=== PATIENT | female | born 2000 | race Caucasian/White ===

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

== ENCOUNTER 2019-10-03 17:43 | Emergency (ER) | payer OTHER ==
[~2019-10-03] VITALS: Ht 175.3 cm; Wt 132.4 kg
--- OUTSIDE RECORDS SUMMARY | ~2019-10-03 | XMS | Clinical Summary ---
Demographics + + + | Address | [address] | | | [place] [address] | + + + | Home Phone | | + + + | Preferred Language | Unknown | + + + | Marital Status | Single | + + + | Sabianism Affiliation | Unknown | + + + | Race | White | + + + | Ethnic Group | Not or | + + + Author + + + | Author | [facility] | + + + | Organization | [facility] | + + + | Address | Unknown | + + + | Phone | Unavailable | + + + Support + + + + + | Name | Relationship | Address | Phone | + + + + + | Carmen Ledbetter | ECON | [address] | | | | | [place] | | | | | [address] | | + + + + + Care Team Providers + +------+ + | Care Binding Dyer Name | Role | Phone | + +------+ + | Caitlyn Cunningham MD | PCP | | + +------+ + Source Comments DEBRA is fully live on both [facility] Amb[facility] and [facility] InPatient.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 | + + Last Filed Vital Signs Not on file Plan of Treatment + + + + + | Health Maintenance | Due Date | Last Done | Comments | + + + + + | Influenza (Flu) | | | | | vaccination (#1) | 9 | | | + + + + + | Pneumococcal | Aged Out | | No longer eligible | | vaccination | | | based on patient's | | | | | age to complete this | | | | | topic | + + + + + Results Not on filefrom Last 3 Months"
--- OUTSIDE RECORDS SUMMARY | ~2019-10-03 | XMS | Clinical Summary ---
Demographics + + + | Address | [address] | | | [place] [address] | + + + | Home Phone | | + + + | Preferred Language | Unknown | + + + | Marital Status | Unknown | + + + | Pentecostal Affiliation | Unknown | + + + | Race | Unknown | + + + | Ethnic Group | Unknown | + + + Author + + + | Author | [facility] | | | and [place] | + + + | Organization | [facility] | | | and [place] | + + + | Address | Unknown | + + + | Phone | Unavailable | + + + Support + + +---------+ + | Name | Relationship | Address | Phone | + + +---------+ + | Jayce Esquivel | ECON | Unknown | | + + +---------+ + Care Team Providers + +------+ + | Care Rn Imaging Name | Role | Phone | + +------+ + | No, Physician | PCP | Unavailable | + +------+ + Allergies No Known Allergies Medications Not on file Active Problems Not on file Social History + +-------+ +--------+------+ | Tobacco Use | Types | Packs/Day | Years | Date | | | | | Used | | + +-------+ +--------+------+ | Never Smoker | | | | | + +-------+ +--------+------+ + +---+---+---+ | Smokeless Tobacco: | | | | | Never Used | | | | + +---+---+---+ + + +---------+ + | Alcohol Use | Drinks/Week | oz/Week | Comments | + + +---------+ + | Not Currently | | | | + + +---------+ + + + + | Sex Assigned at | Date Recorded | | | | + + + | Not on file | | + + + Last Filed Vital Signs + + + + + | Vital Sign | Reading | Time Taken | Comments | + + + + + | Blood Pressure | 158/79 | 02/13/2019 3:56 PM | | | | | PST | | + + + + + | Pulse | 93 | 02/13/2019 3:56 PM | | | | | PST | | + + + + + | Temperature | 36.5 C (97.7 F) | 02/13/2019 3:56 PM | | | | | PST | | + + + + + | Respiratory Rate | 22 | 02/13/2019 3:56 PM | | | | | PST | | + + + + + | Oxygen Saturation | 100% | 02/13/2019 3:56 PM | | | | | PST | | + + + + + | Inhaled Oxygen | - | - | | | Concentration | | | | + + + + + | Weight | 128.8 kg (284 lb) | 02/13/2019 3:56 PM | | | | | PST | | + + + + + | Height | 175.3 cm (5' 9") | 02/13/2019 3:56 PM | | | | | PST | | + + + + + | Body Mass Index | 41.94 | 02/13/2019 3:56 PM | | | | | PST | | + + + + + Plan of Treatment + + +-------+ + | Health Maintenance | Due Date | Last | Comments | | | | Done | | + + +-------+ + | Well Child Check | | | | | | 3 | | | + + +-------+ + | Vaccine: HPV (1 - | | | | | 2-dose series) | 1 | | | + + +-------+ + | Vaccine: | | | | | Dtap/Tdap/Td (1 - | 9 | | | | Tdap) | | | | + + +-------+ + | Vaccine: Influenza | | | | | (Season Ended) | 0 | | | + + +-------+ + Results Not on filefrom Last 3 Months Insurance + +--------+ +--------+ +---------+--------+ | Payer | Benefi | Subscriber | Effect | Phone | Address | Type | | | t Plan | ID | daniele | | | | | | / | | Dates | | | | | | Group | | | | | | + +--------+ +--------+ +---------+--------+ | [employer] | [employer] | [id number] | 02/13/ | [phone] | | Medica | | MEDICAID HMO | HEALTH | | 2019-P | 1 | | id | | | MDCD | | resent | | | | | | [place] | | | | | | + +--------+ +--------+ +---------+--------+ + +--------+ +--------+ + + | Guarantor Name | Accoun | Relation to | Date | Phone | Billing Address | | | t Type | Patient | of | | | | | | | | | | + +--------+ +--------+ + + | Ivett Trevino | Person | Self | [birth year] | [address] | | | al/Fam | | 2001 | [phone] | [place], [place] | | | ezequiel | | | 0 (Home) | [address] | | | | | | [phone] | | | | | | | 1 (Work) | | + +--------+ +--------+ + + Advance Directives + + + + + | Type | Date Recorded | Patient | Explanation | | | | Report Checker | | + + + + + | Power of | | | | | Technician Automatic | | | | + + + + + | Advance | 02/13/2019 | | | | Directive | 4:38 PM | | | + + + + +
--- OUTSIDE RECORDS SUMMARY | ~2019-10-03 | XMS | Encounter Summary ---
Demographics + + + | Address | [address] | | | [place] [address] | + + + | Home Phone | | + + + | Preferred Language | Unknown | + + + | Marital Status | Unknown | + + + | Nondenominational Affiliation | Unknown | + + + | Race | Unknown | + + + | Ethnic Group | Unknown | + + + Author + + + | Author | [facility] | | | and [place] | + + + | Organization | [facility] | | [...] Team Providers + +------+ + | Care Medical Clinic Manager Name | Role | Phone | + +------+ + | No, Physician | PCP | Unavailable | + +------+ + Reason for Visit + +--------+ + | Reason | Onset | Comments | | | Date | | + +--------+ + | ED Follow-up | 02/16/ | | | | 2019 | | + +--------+ + Encounter Details +--------+ + + + + | Date | Type | Department | Care Team | Description | +--------+ + + + + | 02/16/ | Telephone | [place] [facility] | [facility], | ED Follow-up | | 2019 | | [facility] | Bruna Adams RN | | | | | [facility] [address] | | | | | | [facility] [place], | | | | | | [place] [address] | | | | | | [phone] | | | +--------+ + + + + Social History + +-------+ [...] on file | | + + + documented as of this encounter Miscellaneous Notes Telephone Encounter - Bruna Alfredo RN - 02/16/2019 9:31 AM PSTMessage states p atient in not accepting calls at this time. Letter to patient with PCP options in our area. Bruna Alfredo RN documented in this encounter Plan of Treatment Not on filedocumented as of this encounter Visit Diagnoses Not on filedocumented in this encounter"
--- OUTSIDE RECORDS SUMMARY | ~2019-10-03 | XMS | Encounter Summary ---
Demographics + + + | Address | [address] | | | [place] [address] | + + + | Home Phone | | + + + | Preferred Language | Unknown | + + + | Marital Status | Single | + + + | Restoration Affiliation | Unknown | + + + | Race | White | + + + | Ethnic Group | Not or | + + + Author + + + | Author | [facility] | + + + | Organization | [facility] | + + + | Address | Unknown | + + + | Phone | Unavailable | + + + Support + + + + + | Name | Relationship | Address | Phone | + + + + + | Carmen Ledbetter | ECON | [address] | | | | | [place] | | | | | [address] | | + + + + + Care Team Providers + +------+ + | Care Art Critic Name | Role | Phone | + +------+ + | Caitlyn Cunningham MD | PCP | | + +------+ + Encounter Details +--------+ + + + + | Date | Type | Department | Care Team | Description | +--------+ + + + + | 09/29/ | Ancillary | Registration [id number] | Ashley Kay, | | | 2005 | Registratio | [address] | OD,[place]ERSONO [address] | | | | [address] | [address] Mailcode: [id number] | [address] | | | | | [place], [place] | [place] [address] | | | | | [address] | [phone] | | | | | [phone] | | | +--------+ + + + [...] recent travel history available. | + + documented as of this encounter Plan of Treatment Not on filedocumented as of this encounter Visit Diagnoses Not on filedocumented in this encounter"
--- OUTSIDE RECORDS SUMMARY | ~2019-10-03 | XMS | Encounter Summary ---
Demographics + + + | Address | [address] | | | [place] [address] | + + + | Home Phone | | + + + | Preferred Language | Unknown | + + + | Marital Status | Single | + + + | Bahai Affiliation | Unknown | + + + | Race | White | + + + | Ethnic Group | Not or | + + + Author + + + | Author | [facility] | + + + | Organization | [facility] | + + + | Address | Unknown | + + + | Phone | Unavailable | + + + Support + + + + + | Name | Relationship | Address | Phone | + + + + + | Carmen Ledbetter | ECON | [address] | | | | | [place] | | | | | [address] | | + + + + + Care Team Providers + +------+ + | Care Anesthesia Associate Name | Role | Phone | + +------+ + | Caitlyn Cunningham MD | PCP | | + +------+ + Reason for Visit + + + | Reason | Comments | + + + | Follow-up visit | strabismus, amblyopia | + + + Encounter Details +--------+---------+ + + + | Date | Type | Department | Care Team | Description | +--------+---------+ + + + | 09/29/ | Office | [facility] | Eliza Ashley, | Monocular Esotropia | | 2005 | Visit | [facility] Clinic [address] | OD,FAAO [address] | with V Pattern; | | | | [address] [facility] | [address] | Strabismic | | | | [place] | [place] [address] | Amblyopia; | | | | floor [place], [place] | [phone] | Hypermetropia; | | | | [address] | | Anisometropia | +--------+---------+ + + + Social History + +-------+ [...] + + documented as of this encounter Ashley Harkins - 09/29/2005 5:18 PM PDTFormatting of this note might be different from vipin jeronimo. >> ALEKSANDRA STOUT Wed Sep 29, 2005 4:59 PM Status: Pended 5 years 4 mos. here for follow up of dense amblyopia OS and esotropia. Not seen by [facility] e 05/2004, but was followed in [place] by OD several months ago who put her in bifocals. Mo m said she is having a hard time getting used to them and does not like to wear glasses anym ore. Using atropine qod since Dr's visit, but Mom stopped gtts one week ago for this visit. Was a non-compliant patch wearer in the past. Visual Acuity: VAcc Snellen RE 20/20- 2 LE 20/125 BEO: 20/25-2 Near: cc RE: 20/200 LE: 20/400 Pupils PERRL no APD both eyes See orthoptic evaluation to be scanned. Nisha Garcia ORTHOPTIC EVALUATION: Patient seen for an orthoptic evaluation. To be scanned. Motility: dense amblyopia OS with now obvious V pattern ET. Impression: needs to have SV lenses and resume amblyopia treatment ALEKSANDRA STOUT uAshley mobley - 09/29 5:18 PM PDT PEDIATRIC OPHTHALMOLOGY EVALUATION Scheduling error--thought they were seeing Dr. Serna, last exam 06/06, scheduled today wit osmani Stout and Dr. Serna isn't in today. REASON FOR VISIT: Strabismus/amblyopia follow up This patient is accompanied in the office by his/her mother, father and sisters. Using atropine drops in the right eye every 3-4 days except last month of school. She was f alling often, getting bruises on her head and skinned knees. Restarted after school stopped on same scheduled. No drops for about 1+ week in prep for exam. Parents note the left eye cr ossing in slightly while the right eye is dilated, but not at other times. Patching in the past was unsuccessful--she peeked around or looked over glasses. Parents a re unwilling to patch again, want to stay with drops. Saw Rachell Caceres, OD in [place] in June, was given bifocals. She has been looking ov er the bifocal since she received them but did not look over previous glasses. WEARING: Current Correction: 3 months old Sphere Cylinder [place] Prism Right Eye pl sph Left Eye +2.25 sph Add RE +1.50 Add LE +1.50 Cycloplegic Retinoscopy: Sphere Cylinder [place] Right Eye +1.25 sph Left Eye +3.25 sph Dilated Fundus Examination: RE LE Optic Nerve C/D ratio: 0.1 / 0.1 Size: normal Appearance: Normal C/D ratio: 0.1 / 0.1 Size: normal Appearance: Normal Macula normal normal Retina normal normal Peripheral Retina normal normal Vitreous normal normal Assessment: Esotropia Dense amblyopia, left eye Hyperopia Plan: New glasses prescription with increased plus, no bifocal because it is causing her to avoid looking through glasses. May need to move to full cycloplegic correction but I will hold o ff giving her that at this time to maintain blur in the right eye while cyclopleged. Atropine penalization 1 drop in the right eye every week day, weekends off Patient should insert atropine as usual leading up to next appointment with Dr. 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
--- OUTSIDE RECORDS SUMMARY | ~2019-10-03 | XMS | Encounter Summary ---
Demographics + + + | Address | [address] | | | [place] [address] | + + + | Home Phone | | + + + | Preferred Language | Unknown | + + + | Marital Status | Single | + + + | Nondenominational Affiliation | Unknown | + + + | Race | White | + + + | Ethnic Group | Not or | + + + Author + + + | Author | [facility] | + + + | Organization | [facility] | + + + | Address | Unknown | + + + | Phone | Unavailable | + + + Support + + + + + | Name | Relationship | Address | Phone | + + + + + | Carmen Ledbetter | ECON | [address] | | | | | [place] | | | | | [address] | | + + + + + Care Team Providers + +------+ + | Care Machine Hamper Maker Name | Role | Phone | + +------+ + | Caitlyn Cunningham MD | PCP | | + +------+ + Reason for Visit + + + | Reason | Comments | + + + | Follow-up visit | not seen since 05/2004 | + + + | Strabismus | | + + + Office Visit - E/M Services (Routine) +--------+--------+ + + + + | Status | Reason | Specialty | Diagnoses / | Referred By | Referred To | | | | | Procedures | Contact | Contact | +--------+--------+ + + + + | Closed | | Ophthalmology | Diagnoses | Marisa, | Daphne, | | | | | Amblyopia, | Caitlyn Hansen MD | MD Carl | | | | | unspecified | PEDS | [address] | | | | | | SPECIALISTS | [address] | | | | | | [address] [place] | [address] | | | | | | [address] | [place], [place] | | | | | | [address] | [address] | | | | | | [address] | Phone: | | | | | | [place], | [phone] | | | | | | [place] [address] | Fax: | | | | | | Phone: | [phone] | | | | | | [phone] | | | | | | | Fax: | | | | | | | [phone] | | +--------+--------+ + + + + Encounter Details +--------+---------+ + + + | Date | Type | Department | Care Team | Description | +--------+---------+ + + + | 09/29/ | Office | [facility] | Raven Stout | Monocular Esotropia | | 2005 | Visit | [facility] | | with V Pattern; | | | | at [facility] | | Strabismic | | | | [address] | | Amblyopia; | | | | [facility] [place], | | Hypermetropia; | | | | 5th floor | | Anisometropia | | | | [place] [address] | | | | | | [phone] | | | +--------+---------+ + + + Social History [...] + + documented as of this encounter Progress Raven Kessler - 09/29/2005 4:59 PM PDTFormatting of this note might be different from the antonella lees. 5 years 4 mos. here for follow up of dense amblyopia OS and esotropia. Not seen by BETTE barrera 05/2004, but was followed in [place] by OD several months ago who put her in bifocals. M om said she is having a hard time getting used to them and does not like to wear glasses any more. Using atropine qod since 's visit, but Mom stopped gtts one week ago for this visit . Was a non-compliant patch wearer in the past. Current Correction: 3 months old Sphere Cylinder [place] Prism Right Eye plano Left Eye +2.25 Add RE + 1.50 Add LE + 1.50 Visual Acuity: VAcc Snellen RE 20/20-2 LE 20/125 BEO: 20/25-2 Near: cc RE: 20/200 LE: 20/400 See orthoptic evaluation to be scanned. Nisha Garcia ORTHOPTIC EVALUATION: Patient seen for an orthoptic evaluation. To be scanned. Motility: dense amblyopia OS with now obvious V pattern ET. Impression: needs to have SV lenses and resume amblyopia treatment RAVEN STOUT uAshley mobley - 6 3:38 PM PDTNote in separate encounter on same date. documented in this encounter Plan of Treatment Not on filedocumented as of this encounter Visit Diagnoses + + | Diagnosis | + + | Monocular esotropia with V pattern | + + | Strabismic amblyopia | + + | Hypermetropia | + + | Anisometropia | + + documented in this encounter"
--- OUTSIDE RECORDS SUMMARY | ~2019-10-03 | XMS | Encounter Summary ---
Demographics + + + | Address | [address] | | | [place] [address] | + + + | Home Phone | | + + + | Preferred Language | Unknown | + + + | Marital Status | Single | + + + | Alevism Affiliation | Unknown | + + + | Race | White | + + + | Ethnic Group | Not or | + + + Author + + + | Author | [facility] | + + + | Organization | [facility] | + + + | Address | Unknown | + + + | Phone | Unavailable | + + + Support + + + + + | Name | Relationship | Address | Phone | + + + + + | Carmen Ledbetter | ECON | [address] | | | | | [place] | | | | | [address] | | + + + + + Care Team Providers + +------+ + | Care Mailing Specialist Name | Role | Phone | + [...] [address] | | | | | [place], [place] | [place] [address] | | | | | [address] | [phone] | | | | | [phone] | | | +--------+ + + + [...]
--- OUTSIDE RECORDS SUMMARY | ~2019-10-03 | XMS | Encounter Summary ---
Demographics + + + | Address | [address] | | | [place] [address] | + + + | Home Phone | | + + + | Preferred Language | Unknown | + + + | Marital Status | Single | + + + | Mandaen Affiliation | Unknown | + + + | Race | White | + + + | Ethnic Group | Not or | + + + Author + + + | Author | [facility] | + + + | Organization | [facility] | + + + | Address | Unknown | + + + | Phone | Unavailable | + + + Support + + + + + | Name | Relationship | Address | Phone | + + + + + | Carmen Ledbetter | ECON | [address] | | | | | [place] | | | | | [address] | | + + + + + Care Team Providers + +------+ + | Care Accounting Systems Analyst Name | Role | Phone | + [...] + + | 09/29/ | Office | [facility] | Eliza Ashley, | Monocular Esotropia | | 2005 | Visit | Eye Clinic [address] | OD,FAAO [address] | with V Pattern; | | | | [address] [facility] | [address] | Strabismic | | | | [place] | [place] [address] | Amblyopia; | | | | floor [place], [place] | [phone] | Hypermetropia; | | | | [address] [...] OS and esotropia. Not seen by [facility] e 05/2004, but was followed in [place] by OD several months ago who put [...] with drops. Saw Rachell Caceres, OD in [place] in June, was given bifocals. She has been looking ov er the bifocal since she received them but did not look over previous glasses. WEARING: Current Correction: 3 months old Sphere Cylinder [place] Prism Right Eye pl sph Left Eye +2.25 sph Add RE +1.50 Add LE +1.50 Cycloplegic Retinoscopy: Sphere Cylinder [place] Right Eye +1.25 sph Left Eye [...] | + + +--------+ + + | [place] REFRACTION | Procedures | Routin | Hypermetropia [...]
--- OUTSIDE RECORDS SUMMARY | ~2019-10-03 | XMS | Clinical Summary ---
Demographics + + + | Address | [address] | | | [place] [address] | + + + | Home Phone | | + + + | Preferred Language | Unknown | + + + | Marital Status | Single | + + + | Shinto Affiliation | Unknown | + + + | Race | White | + + + | Ethnic Group | Not or | + + + Author + + + | Author | [facility] | + + + | Organization | [facility] | + + + | Address | Unknown | + + + | Phone | Unavailable | + + + Support + + + + + | Name | Relationship | Address | Phone | + + + + + | Carmen Ledbetter | ECON | [address] | | | | | [place] | | | | | [address] | | + + + + + Care Team Providers + +------+ + | Care Sack Filler Name | Role | Phone | + +------+ + | Caitlyn Cunningham MD | PCP | | + +------+ + Source Comments DEBRA is fully live on both [facility] Ambulatory and [facility] InPatient.[facility] Allergies No Known Allergies Medications No [...]
--- OUTSIDE RECORDS SUMMARY | ~2019-10-03 | XMS | Encounter Summary ---
Demographics + + + | Address | [address] | | | [place] [address] | + + + | Home Phone | | + + + | Preferred Language | Unknown | + + + | Marital Status | Single | + + + | Taoism Affiliation | Unknown | + + + | Race | White | + + + | Ethnic Group | Not or | + + + Author + + + | Author | [facility] | + + + | Organization | [facility] | + + + | Address | Unknown | + + + | Phone | Unavailable | + + + Support + + + + + | Name | Relationship | Address | Phone | + + + + + | Carmen Ledbetter | ECON | [address] | | | | | [place] | | | | | [address] | | + + + + + Care Team Providers + +------+ + | Care 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 Name | Role | Phone | + [...] | | | [address] | [place], [place] | | | | | | [address] | [address] | | | | | | [address] | Phone: | | | | | | [place], | [phone] | | | | | | [place] [address] | Fax: | | | | | | Phone: | [phone] | | | | | | [phone] | | | | | | | Fax: | | | | | | | [phone] | | +--------+--------+ + + + + Encounter Details +--------+---------+ + + + | Date | Type | Department | Care Team | Description | +--------+---------+ + + + | 09/29/ | Office | [facility] | 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
--- OUTSIDE RECORDS SUMMARY | ~2019-10-03 | XMS | Encounter Summary ---
Demographics + + + | Address | [address] | | | [place] [address] | + + + | Home Phone | | + + + | Preferred Language | Unknown | + + + | Marital Status | Unknown | + + + | Judaism Affiliation | Unknown | + + + | Race | Unknown | + + + | Ethnic Group | Unknown | + + + Author + + + | Author | [facility] | | | and [place] | + + + | Organization | [facility] | | | and [...] Team Providers + +------+ + | Care Fruit Farmer Name | Role | Phone | + +------+ + | No, Physician | PCP | Unavailable | + +------+ + Reason for Visit + + + | Reason | Comments | + + + | Menstrual Issues | | + + + Encounter Details +--------+ + + + + | Date | Type | Department | Care Team | Description | +--------+ + + + + | 02/13/ | Emergency | [facility] | Dominique Love | Negative | | 2019 | | [facility] | C, 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 [address] | test (Primary Dx); | | | | CENTER [address] | [place] | Acute cystitis | | | | [place] | [address] | without hematuria | | | | [address] | | | | | | [phone] | | | +--------+ + + + [...] + + documented as of this encounter Last Filed Vital Signs + + + [...] | | + + + + + documented in this encounter Medications at Time of Discharge + + + +---------+ + + | Medication | Sig | Dispensed | Refills | Start | End Date | | | | | | Date | | + + + +---------+ + + | nitrofurantoin | Take 1 capsule by | 10 | 0 | 02/16/20 | | | (MACROBID) 100 mg | mouth 2 times daily | capsule | | 19 | 9 | | capsuleIndications: | for 5 days. | | | | | | Uncomplicated | Indications: Simple | | | | | | Urinary Tract | Infection of the | | | | | | Infection | Urinary Tract | | | | | + + + +---------+ + + documented as of this encounter ED Notes Dominique Love ARNP - 02/13/2019 4:55 PM PSTFormatting of this note might be differen t from the original. [facility] Emergency Department Provider Note Name: Ivett Trevino Date: 02/13/2019 : 2000 Room Number: HALL02 PCP: No Physician on file ED COURSE Ivett Trevino is a 18 y.o. female who was seen and evaluated in [facility]. Clinical consid erations include, but are not restricted to, UTI, , pyelonephritis. Patient was se en and evaluated with significant other bedside for entire visit. She did report she is act ively trying to get and did suggest she establish care to treat her PCO S. HCG ser um was completed which was found to be negative. Urinalysis was completed which was found t o be positive for UTI. Prescription was sent to pharmacy and patient was encouraged to foll ow up for any new or persistent symptoms. Clinical Impression and Plan Final diagnoses: Negative test Acute cystitis without hematuria ED Prescriptions None Orders competed in ER Medications nitrofurantoin (MACROBID) capsule 100 mg (has no administration in time range) Extended ED Note CC: Chief Complaint Patient presents with Menstrual Issues Method of Arrival: walk-in History obtained from: pt HPI: Ivett Trevino is a 18 y.o. female who presents to the Emergency Department with possibl e . She reports her last period was December 11 and she's had urinary frequency, o ccasional nausea, constipation, one episode of vomiting a week ago. Wilfred been actively t rying to get over the last week. Review of Systems Review of Systems Constitutional: Negative for appetite change, fatigue and fever. Cardiovascular: Positive for chest pain. Gastrointestinal: Positive for constipation, nausea and vomiting. Negative for abdominal pa in. Genitourinary: Negative for flank pain, vaginal bleeding, vaginal discharge and vaginal gaby n. Musculoskeletal: Negative for back pain and neck pain. Skin: Negative for rash and wound. Physical Exam Pulse: 93- Resp: 22- BP: 158/79 - SpO2: 100 % - Temp: 36.5 C (97.7 F) TEMPERATURE HISTORY 96H: Temp (96hrs), Av.5 C (97.7 F), Min:36.5 C (97.7 F), Ma x:36.5 C (97.7 F) BLOOD PRESSURE HISTORY: Systolic (36hrs), Av , Min:158 , Max:158 Diastolic (36hrs), Av, Min:79, Max:79 CURRENT WEIGHT: @WTENG@ Wt Readings from Last 10 Encounters: 02/13/19 (!) 128.8 kg (284 lb) (>99 %, Z= 2.74)* * Growth percentiles are based on CDC (Girls, 2-20 Years) data. Physical Exam Constitutional: She is oriented to person, place, and time. She appears well-developed and well-nourished. No distress. HENT: Head: Normocephalic and atraumatic. Eyes: Conjunctivae are normal. Cardiovascular: Normal rate and regular rhythm. Pulmonary/Chest: Effort normal and breath sounds normal. Abdominal: Soft. Normal appearance and bowel sounds are normal. There is no tenderness. The re is no CVA tenderness. Neurological: She is alert and oriented to person, place, and time. Skin: Skin is warm and dry. No rash noted. No erythema. Psychiatric: She has a normal mood and affect. Her behavior is normal. Judgment and thought content normal. Nursing note and vitals reviewed. LAB VALUES Recent Results (from the past 24 hour(s)) , Serum, Qual Collection Time: 02/13/19 2:23 PM Result Value Ref Range hCG Screen, Serum Negative Negative Urinalysis with Microscopic with Culture if Indicated Collection Time: 02/13/19 4:24 PM Result Value Ref Range Color Yellow Pale Yellow, Yellow Clarity Clear Clear pH, Urine 5.0 5.0 - 7.0 Specific [place] 1.015 1.003 - 1.030 Protein, Urine 15 mg/dL (A) Negative Blood, Urine Negative Negative Glucose, Urine Normal Normal Ketones, Urine Negative Negative Bilirubin, Urine Negative Negative Nitrite, Urine Negative Negative Leukocyte Esterase, Urine 25 lea/uL (A) Negative Urobilinogen, Urine Normal 0-1.0 mg/dL WBC UA 10 - 20 (A) <=5 /HPF RBC UA None Seen <=5 /HPF SQUAMOUS EPITHELIAL UA Moderate (A) None Seen /LPF BACTERIA UA Many (A) None Seen /HPF URINE COMMENT Urine Culture Set Up Radiological Studies No orders to display Past Medical, Surgical, Social, and Family History No past medical history on file. No past surgical history on file. Social History Tobacco Use Smoking status: Never Smoker Smokeless tobacco: Never Used Substance Use Topics Alcohol use: Not Currently Drug use: Never No current outpatient medications on file prior to encounter. This document serves as a record of the serviced and decision personally performed by Becky Love ENP, FNP. Parts of this note may have been created using [employer] which is a [employer] e recognition software. It inherently makes mistakes with substitution of words that sound similar. Electronically signed by Dominique Love ENP, FNP Courtney C Travis, ARNP 02/13/19 1899 SULTANA Higgins 02/13[birth year]191900 llDemetrius washington RN - 02/13/2019 3:59 PM PSTPt thinks she may be she has missed 2 "cycles" and take n 6 test and all came back negative, but pt states that she has all the other s/s of documented in this encounter Plan of Treatment Not on filedocumented as of this encounter Procedures + +--------+ + + + | Procedure Name | Priori | Date/Time | Associated Diagnosis | Comments | | | ty | | | | + +--------+ + + + | URINALYSIS WITH | STAT | 02/13/2019 | | Results for this | | MICROSCOPIC WITH | | 4:24 PM | | procedure are in the | | CULTURE IF INDICATED | | PST | | results section. | + +--------+ + + + | CULTURE, URINE | Routin | 02/13/2019 | | Results for this | | | e | 4:24 PM | | procedure are in the | | | | PST | | results section. | + +--------+ + + + | , SERUM, | STAT | 02/13/2019 | | Results for this | | QUAL | | 2:23 PM | | procedure are in the | | | | PST | | results section. | + +--------+ + + + documented in this encounter Results Culture, Urine (02/13/2019 4:24 PM PST) + + + + + + | Component | Value | Ref Range | Performed | Pathologist | | | | | At | Signature | + + + + + + | Culture | >100,000 CFU/ml | | [facility] | | | | Staphylococcus | | [facility] | | | | saprophyticus | | [facility] | | | | | | LABORATORY | | + + + + + + | Culture | 10,000 - 20,000 CFU/ml | | [facility] | | | | Mixed fabiola (multiple | | [facility] | | | | morphologies present) | | HOSPITAL | | | | | | LABORATORY | | + + + + + + + + | Specimen | + + | Urine | + + + + + | Narrative | Performed At | + + + | Current [facility] clinical laboratory antibiogram data can be found on the | [facility] | | [facility] intranet at | HOSPITAL | | [email or web address] or on | LABORATORY | | the [facility] website at [email or web address] | | + + + + + +--------+ + | Organism | Antibiotic | Method | Susceptibility | + + +--------+ + | Staphylococcus | Ciprofloxacin | | <=1.0000: | | saprophyticus | | | Sensitive | + + +--------+ + | Staphylococcus | Gentamicin | | <=4.0000: | | saprophyticus | | | Sensitive | + + +--------+ + | Staphylococcus | Levofloxacin | | Sensitive | | saprophyticus | | | | + + +--------+ + | Staphylococcus | Nitrofurantoin | | Sensitive | | saprophyticus | | | | + + +--------+ + | Staphylococcus | Penicillin | | Resistant | | saprophyticus | | | | + + +--------+ + | Staphylococcus | Rifampin | | <=1.0000: | | saprophyticus | | | Sensitive | + + +--------+ + | Staphylococcus | Tetracycline | | <=2.0000: | | saprophyticus | | | Sensitive | + + +--------+ + | Staphylococcus | Trimethoprim + | | <=2.0000: | | saprophyticus | Sulfamethoxazole | | Sensitive | + + +--------+ + | Staphylococcus | Vancomycin | | 1.0000: Sensitive | | saprophyticus | | | | + + +--------+ + + + + + + | Performing | Address | City/State/Zipcode | Phone Number | | Organization | | | | + + + + + | [facility] | [address] | [place] | [phone] | | [facility] | | [address] | | + + + + + Urinalysis with Microscopic with Culture if Indicated (02/13/2019 4:24 PM PST) + + + + + + | Component | Value | Ref Range | Performed | Pathologist | | | | | At | Signature | + + + + + + | Color, | Yellow | Pale Yellow, | [facility] | | | Urine | | Yellow | [facility] | | | | | | [facility] | | | | | | LABORATORY | | + + + + + + | Clarity | Clear | Clear | [facility] | | | | | | [facility] | | | [facility] | | | | | | [facility] | | + + + + + + | pH, Urine | 5.0 | 5.0 - 7.0 | [facility] | | | | | | [facility] | | | | | | [facility] | | | | | | [facility]ATORY | | + + + + + + | Specific | 1.015 | 1.003 - 1.030 | [facility] | | | [place], | | | [facility] | | | Urine | | | [facility]OSPITAL | | | | | | LABORATORY | | + + + + + + | Protein, | 15 mg/dL (A) | Negative | [facility] | | | Urine | | | [facility] | | | | | | [facility] | | | | | | LABORATORY | | + + + + + + | Blood, | Negative | Negative | [facility] | | | Urine | | | [facility] | | | | | | [facility] | | | | | | LABORATORY | | + + + + + + | Glucose, | Normal | Normal | [facility] | | | Urine | | | [facility] | | | | | | [facility] | | | | | | LABORATORY | | + + + + + + | Ketones, | Negative | Negative | [facility] | | | Urine | | | [facility] | | | | | | [facility] | | | | | | LABORATORY | | + + + + + + | Bilirubin, | Negative | Negative | [facility] | | | Urine | | | [facility] | | | | | | [facility] | | | | | | LAB[facility]ATORY | | + + + + + + | Nitrite, | Negative | Negative | [facility] | | | Urine | | | [facility] | | | | | | [facility] | | | | | | LAB[facility]ATORY | | + + + + + + | Leukocyte | 25 lea/uL (A) | Negative | [facility] | | | Esterase, | | | [facility] | | | Urine | | | [facility] | | | | | | LABORATORY | | + + + + + + | Urobilinoge | Normal | 0-1.0 mg/dL | [facility] | | | n, Urine | | | [facility] | | | | | | [facility] | | | | | | LABORATORY | | + + + + + + | White Blood | 10 - 20 (A) | <=5 /HPF | [facility] | | | Cells, | | | [facility] | | | Urine | | | [facility]OSPITAL | | | | | | LABORATORY | | + + + + + + | Red Blood | None Seen | <=5 /HPF | [facility] | | | Cells, | | | [facility] | | | Urine | | | [facility]OSPITAL | | | | | | LABORATORY | | + + + + + + | Squamous | Moderate (A) | None Seen /LPF | [facility] | | | Epithelial | | | [facility] | | | Cells, | | | [facility]OSPITAL | | | Urine | | | LABORATORY | | + + + + + + | Bacteria, | Many (A) | None Seen /HPF | [facility] | | | Urine | | | [facility] | | | | | | [facility] | | | | | | LAB[facility]ATORY | | + + + + + + | Urine | Urine Culture Set Up | | [facility] | | | Comment | | | [facility] | | | | | [facility] | | | | | | [facility] | | + + + + + + + + | Specimen | + + | Urine | + + + + + + + | Performing | Address | City/State/Zipcode | Phone Number | | Organization | | | | + + + + + | [facility] | [address] | [place] | [phone] | | [facility] | | [address] | | + + + + + , Serum, Qual (02/13/2019 2:23 PM PST) + + + + + + | Component | Value | Ref Range | Performed | Pathologist | | | | | At | Signature | + + + + + + | hCG Screen, | Negative | Negative | [facility] | | | Serum | | | [facility] | | | | | | [facility] | | | | | | LAB[facility]ATORY | | + + + + + + + + | Specimen | + + | Blood | + + + + + + + | Performing | Address | City/State/Zipcode | Phone Number | | Organization | | | | + + + + + | [facility] | [address] | [place] | [phone] | | [facility] | | [address] | | + + + + + documented in this encounter Visit Diagnoses + + | Diagnosis | + + | Negative test - Primary examination or test, negative result | + + | Acute cystitis without hematuria Acute cystitis | + + documented in this encounter
[~2019-10-03 17:43] MED LIST changes: +KEFLEX500 MG PO; +TESSALON PERLE100 MG PO
[2019-10-03] MEDS ORDERED: LAMOTRIGINE25 MG PO (17:58)
== END 2019-10-03 19:18 | disposition home or self-care (01) ==
LOC: ED 17:43
DX: S96.912A Strain of unspecified muscle and tendon at ankle and foot level, left foot, initial encounter (principal); I10 Essential (primary) hypertension; Z88.8 Allergy status to other drugs, medicaments and biological substances; Z79.899 Other long term (current) drug therapy; W19.XXXA Unspecified fall, initial encounter
CPT/HCPCS: 73630; 99283-25

== ENCOUNTER 2020-03-16 00:31 | Emergency (ER) | payer OTHER ==
[~2020-03-16] VITALS: Ht 175.3 cm; Wt 127.0 kg
[~2020-03-16 00:31] MED LIST changes: +LAMOTRIGINE25 MG PO
[2020-03-16] MEDS ORDERED: LATUDA40 MG PO (04:07)
== END 2020-03-16 04:32 | disposition home or self-care (01) ==
LOC: ED 00:31
DX: F32.9 Major depressive disorder, single episode, unspecified (principal); D72.829 Elevated white blood cell count, unspecified; I10 Essential (primary) hypertension; E78.00 Pure hypercholesterolemia, unspecified; F41.9 Anxiety disorder, unspecified; Z88.8 Allergy status to other drugs, medicaments and biological substances
CPT/HCPCS: 80053; 80176; 81001; 84443; 84703; 85025; 99284; G0480

== ENCOUNTER 2021-04-05 13:58 | Emergency (ER) | payer OTHER ==
[~2021-04-05] VITALS: Ht 180.3 cm; Wt 140.6 kg
[~2021-04-05 13:58] MED LIST changes: +LATUDA40 MG PO
== END 2021-04-05 18:22 | disposition home or self-care (01) ==
LOC: ED 13:58
DX: S83.92XA Sprain of unspecified site of left knee, initial encounter (principal); X50.1XXA Overexertion from prolonged static or awkward postures, initial encounter; Y99.0 Civilian activity done for income or pay; I10 Essential (primary) hypertension; E78.00 Pure hypercholesterolemia, unspecified; Z88.8 Allergy status to other drugs, medicaments and biological substances
CPT/HCPCS: 73560; 99283-25; A9270